=== PATIENT | male | born 1965 | race Caucasian/White ===

== ENCOUNTER 2024-07-04 22:49 | Emergency (ER) | payer MEDICAID ==
[~2024-07-04] VITALS: Ht 180.3 cm; Wt 90.9 kg
[2024-07-04 23:09] VITALS: BP 141/83; PULSE 100; RESP 16; TEMP 98.2; O2SAT 90
== END 2024-07-04 23:44 | disposition home or self-care (01) ==
LOC: ER 22:50
DX: F10.129 Alcohol abuse with intoxication, unspecified (principal); M25.519 Pain in unspecified shoulder; V49.9XXA Car occupant (driver) (passenger) injured in unspecified traffic accident, initial encounter; Y93.89 Activity, other specified; Y92.89 Other specified places as the place of occurrence of the external cause; Y99.8 Other external cause status; Y90.9 Presence of alcohol in blood, level not specified
CPT/HCPCS: 99283